=== PATIENT | male | born 1960 | race Caucasian/White ===

== ENCOUNTER 2022-08-22 15:55 | Emergency (ER) | payer OTHER ==
[2022-08-22] MEDS ORDERED: Acetaminophen/oxyCODONE 325-10 MG Tab PO ONE (17:38)
[2022-08-22] MEDS ORDERED: predniSONE 20 MG Tab PO STA (17:46)
[2022-08-22 18:05] VITALS: BP 158/72; PULSE 56
== END 2022-08-22 18:04 | disposition home or self-care (01) ==
LOC: MW.ED 15:55
DX: M10.9 Gout, unspecified (principal); I10 Essential (primary) hypertension; E11.9 Type 2 diabetes mellitus without complications; Z79.899 Other long term (current) drug therapy; Z79.84 Long term (current) use of oral hypoglycemic drugs
CPT/HCPCS: 73630; 99283; A9270

== ENCOUNTER 2023-04-23 18:59 | Emergency (ER) | payer BC, OTHER ==
[2023-04-23] MEDS ORDERED: Acetaminophen 325 MG Tab PO ONE (19:26)
[2023-04-23] MEDS ORDERED: Lidocaine 4% 1 each Patch TOP PRN (19:26)
[2023-04-23 19:32] VITALS: BP 145/84; PULSE 72
== END 2023-04-23 19:42 | disposition home or self-care (01) ==
LOC: MW.ED 18:59
DX: M79.652 Pain in left thigh (principal); I10 Essential (primary) hypertension; E11.9 Type 2 diabetes mellitus without complications; Z79.899 Other long term (current) drug therapy; Z79.84 Long term (current) use of oral hypoglycemic drugs
CPT/HCPCS: 99283; A9270